=== PATIENT | male | born 1960 | race Caucasian/White ===

== ENCOUNTER 2018-12-14 14:17 | Emergency (ER) | payer SELFPAY ==
[2018-12-14 14:23] VITALS: BP 134/93
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
--- NOTE | 2018-12-14 15:58 | RADIOLOGY IMAGING REPORT ---
FACILITY: [facility] - [place] PATIENT NAME: Abel Villa : 1960 MR: [id number] V: [id number] EXAM DATE: ORDERING PHYSICIAN: KO VASQUEZ TECHNOLOGIST: Location: [facility] [place] Patient: Abel Villa : 1960 Visit/Account:[id number] Date of Sevice: 12/14/2018 ADDENDUM #1 Addendum: There was a posterior sixth rib fracture that was visualized after closing the report. Rec ommend rib detail views for further evaluation. Report Dictated By: Narciso Garcia MD at 12/14/2018 3:59 PM Report E-Signed By: Narciso Garcia MD at 12/14/2018 4:01 PM ORIGINAL REPORT CHEST PA LAT Additional pertinent History: Fall COMPARISON STUDIES: none FINDINGS: Support lines and catheters: None Lungs and Pleura: No pneumothorax. No lung contusion. No effusions. Heart and vasculature: Negative. Arlet and Mediastinum: Negative. Bones and Chest wall: There is a cortical offset to the seventh anterior left rib suggesting a nondi splaced fracture. Mild anterior wedging of the T8 and T9 vertebral bodies of a chronic nature. Upper Abdomen: Negative. IMPRESSION: 1. Negative chest for acute cardiopulmonary disease. 2. Changes suggesting possible nondisplaced fracture of the anterior lateral left seventh rib. Rec ommend clinical correlation. Report Dictated By: Narciso Garcia MD at 12/14/2018 3:48 PM Report E-Signed By: Narciso Garcia MD at 12/14/2018 3:52 PM WSN:[id number]
--- NOTE | 2018-12-14 15:59 | RADIOLOGY IMAGING REPORT ---
FACILITY: [facility] - [place] PATIENT NAME: Abel Villa : 1960 MR: [id number] V: [id number] EXAM DATE: ORDERING PHYSICIAN: KO VASQUEZ [place]CHNOLOG[place]: [place] [facility] [place] : 1960 Visit/Account:[id number] Date of Sevice: 12/14/2018 EXAMINATION: CT head without IV contrast HISTORY: Fall with amnesia. COMPARISON: None. TECHNIQUE: Contiguous axial images were obtained from the skull base to the vertex without intraven ous contrast. Sagittal and coronal reformatted images are also submitted. One of the following dose optimization techniques was utilized in the performance of this exam: Autom ated exposure control; adjustment of the mA and/or kV according to the patient's size; or use of an i terative reconstruction technique. Specific details can be referenced in the facility's radiology C T exam operational policy. FINDINGS: Brain volume: Mild generalized atrophy with associated concordant prominence of the ventricular syst em. Ventricles: Normal. Acute ischemic changes: None. Hemorrhage: No acute intracranial hemorrhage. Masses/edema: None. Child-white: Small areas of encephalomalacia and gliosis in the bilateral frontal lobes at the vertex with mild cortical thinning. White matter: A few hypodensities in the deep white matter bilaterally. Vessels: Negative. Extra-axial: Negative. Calvarium/scalp: No acute fracture. Skull base/visualized face: Negative. Visualized sinuses/orbits: Mild nasal septal deviation to the left. IMPRESSION: 1. No acute fracture, hemorrhage or intracranial mass lesion. No CT evidence of acute infarct. 2. Small areas of encephalomalacia in the bilateral frontal lobes at the vertex could be related to o ld trauma or old infarcts. 3. Mild nonspecific white matter disease is suspicious for chronic small vessel ischemia. Report Dictated By: Tawnya Sanford MD at 12/14/2018 3:50 PM Report E-Signed By: Tawnya Sanford MD at 12/14/2018 3:53 PM WSN:[id number]
--- NOTE | 2018-12-14 16:12 | RADIOLOGY IMAGING REPORT ---
FACILITY: [facility] PATIENT NAME: Abel Villa : 1960 MR: [id number] V: [id number] EXAM DATE: ORDERING PHYSICIAN: KO VASQUEZ TECHNOLOGIST: Location: [facility] Patient: Abel Villa : 1960 Visit/Account:[id number] Date of Sevice: 12/14/2018 RIBS LEFT HISTORY: fall with pain Three-view examination of the left ribs. FINDINGS: Reidentified is the cortical undulation undulation the anterior lateral left seventh rib that appears represent a probable old healed fracture. There is a localizing BB subjacent inferiorly and lateral ly with no obvious fracture of the lower ribs. There is a slight ill-defined offset of the fifth/six th rib interface that is well away from the BB but a subtle anterolateral fifth rib fracture cannot b e excluded.. The posterior sixth rib fracture seen on the chest film is reidentified on this examina tion. IMPRESSION: 1. Fracture of the posterior sixth rib on the left. Questionable posterior lateral fifth rib fractu re. Probable old healed anterolateral seventh rib fracture. Report Dictated By: Narciso Garcia MD at 12/14/2018 3:52 PM Report E-Signed By: Narciso Garcia MD at 12/14/2018 4:06 PM WSN:[email or web address]
[2018-12-14] MEDS ORDERED: HYDR-385 PO (16:15)
[2018-12-14] MEDS ORDERED: CEPH500T7 PO (16:15)
== END 2018-12-14 16:16 ==
LOC: ER 14:35
DX: S01.112A Laceration without foreign body of left eyelid and periocular area, initial encounter (principal); S01.312A Laceration without foreign body of left ear, initial encounter; S22.42XA Multiple fractures of ribs, left side, initial encounter for closed fracture
CPT/HCPCS: 70450; 71046; 71100; 99284